=== PATIENT | female | born 1985 | race Caucasian/White ===

== ENCOUNTER 2023-12-16 10:16 | Emergency (ER) | payer BC | END 2023-12-16 13:09 | disposition home or self-care (01) | LOC: CSHERS 10:16 | DX: L03.213 Periorbital cellulitis (principal); I10 Essential (primary) hypertension; F17.200 Nicotine dependence, unspecified, uncomplicated | CPT/HCPCS: 99283 ==

== ENCOUNTER 2025-05-24 11:08 | Emergency (ER) | payer OTHER ==
[2025-05-24] MEDS ORDERED: Cephalexin 250 MG CAP ONE (12:28)
[2025-05-24] MEDS ORDERED: Ketorolac Tromethamine 30 MG (1 mL) VIAL ONE (12:28)
[2025-05-24] MEDS ORDERED: Sulfameth/Trimethoprim DS 800-160mg TAB ONE (12:28)
[2025-05-24] MEDS ORDERED: Dexamethasone 10 MG/ML VIAL ONE (12:28)
== END 2025-05-24 13:18 | disposition home or self-care (01) ==
LOC: CSHERS 11:08
DX: S40.862A Insect bite (nonvenomous) of left upper arm, initial encounter (principal); L03.114 Cellulitis of left upper limb; F17.200 Nicotine dependence, unspecified, uncomplicated; W57.XXXA Bitten or stung by nonvenomous insect and other nonvenomous arthropods, initial encounter
CPT/HCPCS: 96372; 99281; J1100; J1885